=== PATIENT | female | born 1960 | race African-American/Black ===

== ENCOUNTER 2024-10-04 13:54 | Emergency (ER) | payer OTHER ==
[2024-10-04 14:37] VITALS: BP 154/88; PULSE 64; RESP 17; TEMP 98.2; BMI 30.2
[2024-10-04] MEDS ORDERED: IBUPROFEN 400 MG TABLET (FP) PO ONE (15:38)
[2024-10-04] MEDS ORDERED: ACETAMINOPHEN 500 MG TABLET (FP) ONE (15:39)
[2024-10-04] MEDS: ACETAMINOPHEN 500 MG TABLET (FP) PO ONE (15:41)
[2024-10-04] MEDS: IBUPROFEN 400 MG TABLET (FP) PO ONE (15:41)
== END 2024-10-04 18:48 | disposition home or self-care (01) ==
LOC: JERFT 13:54
DX: S16.1XXA Strain of muscle, fascia and tendon at neck level, initial encounter (principal); V73.6XXA Passenger on bus injured in collision with car, pick-up truck or van in traffic accident, initial encounter; Y92.410 Unspecified street and highway as the place of occurrence of the external cause
CPT/HCPCS: 72125-TC; 99284-25